=== PATIENT | male | born 1980 | race African-American/Black ===

== ENCOUNTER 2023-06-03 08:54 | Day surgery (SDC) | payer OTHER, SELFPAY ==
[2023-05-20 09:00] VITALS: BMI 30.8
[2023-06-03 09:48] VITALS: BP 125/96; PULSE 62; RESP 14; TEMP 36.9; O2SAT 100
--- NOTE | 2023-06-03 09:59 | WPDANESEPPF ---
Anes - Initial Pre Proc Eval Procedure: Operation Date: 06/03/23 11:00 Proposed Procedures p Diagnostic Colonoscopy - Angel Luis Fox MD Date/Time: 06/03/23 10:00 Surgeon: Angel Luis Fox MD Pre Op Diagnosis: Rectal Bleeding, Hemorrhoids Patient Data Age: 42 Gender: M Height: 1.65 m Weight: 87.9 kg Last Vital Signs Temp 36.9 C 06/03/23 09:48 Pulse 62 06/03/23 09:48 Resp 14 06/03/23 09:48 BP 125/96 H 06/03/23 09:48 Pulse Ox 100 06/03/23 09:48 O2 Del Method Room Air 06/03/23 09:48 Allergies Allergy/AdvReac Type Severity Reaction Status Date / Time No Known Allergies Allergy Verified 06/03/23 09:46 Home Medications Medication Instructions Recorded Confirmed Type valacyclovir 500 mg tablet 500 mg PO TID #30 tabs 11/19/22 06/03/23 Rx hydrocortisone 2.5 % topical cream 1 applic RECTAL QHS PRN 12/11/22 06/03/23 Rx with perineal applicator hemorrhoids #30 grams (Proctosol HC) Patient hx anesthesia problems: none Family hx anesthesia problems: none Results Review: All pre-operative results and documents have been reviewed as part of the pre-operative evaluation. [facility] Past Medical History Medical History (Updated 06/03/23 @ 10:00 by Steve Joyner MD) Overweight Family History Family History Father Patient's father is in good health Mother Family history unknown, Onset Age: 68 Social History Social History Smoking status: Never smoker Second hand tobacco smoke exposure: No Alcohol intake: current Alcohol use details: occassional Substance use: current Substance use type: marijuana Other substance usage details: occassional Lack of Transportation: No Lack of Food: Never True Current Housing: Decline to Answer Concerned About Future Housing: Decline to Answer Difficulty Paying Gas/Electric Bills: Decline to Answer Difficulty Paying for Meds: Decline to Answer Currently Unemployed: Decline to Answer Education: Decline to Answer Difficulty w/ Childcare or Family Care: No Living arrangements: alone Spiritual care concerns: No Anes - Eval Final PreProcedure Day of Procedure 06/03/23 10:00 Patient weight: overweight Heart: regular rate and rhythm Lungs: clear to auscultation Airway: Mallampati scale class II Neurological: alert and oriented Last oral intake: >/= 8 hours ASA classification: II Emergent: no Anesthetic plan: proceed Anesthesia type and monitoring: general GIVS and standard monitoring Results Review: All pre-operative results and documents have been reviewed as part of the pre-operative evaluation. Informed Consent: The patient's anesthetic plan and its attendant risks and benefits were discussed with the patient/family/POA. Questions were solicited and answers provided to the satisfaction of the patient/family/POA.
[2023-06-03] MEDS: LACTATED RINGERS 1,000 ML 150 ML IV CONT (10:03)
--- NOTE | 2023-06-03 10:11 | PM.HPGS ---
History of Present Illness History of Present Illness Consent: Risks, benefits, and alternatives have been discussed and questions answered. Patient agrees to proceed with procedure. Chief complaint: Rectal Bleeding, Hemorrhoids Narrative: Sy Villalpando is a 42 year old male with intermittent rectal bleeding probably from hemorrhoids but never had colonoscopy Review of Systems Constitutional: Constitutional: Denies headache(s) and Denies weakness Eyes: Eyes: Denies blurry vision ENT: Reports Normal hearing present, Denies headache(s) and Denies neck pain Cardiovascular: Cardiovascular: Denies chest pain and Denies dyspnea Respiratory: Respiratory: Denies dyspnea Gastrointestinal: Gastrointestinal: Reports no additional gastrointestinal complaints Genitourinary: Genitourinary: Denies dysuria Musculoskeletal: Musculoskeletal: Denies neck pain Integumentary/Breasts: Skin/Breast: Denies dry skin Neurologic: Reports Normal hearing present, Denies headache(s) and Denies weakness Psychiatric: Psychiatric: Denies anxiety Endocrine: Endocrine: Denies change in body appearance Hematologic/Lymphatic: Hematologic/Lymphatic: Denies easy bleeding Allergic/Immunologic: Allergic/Immunologic: Denies urticaria PMFSH Past Medical History Medical History (Updated 06/03/23 @ 10:00 by Steve Joyner MD) Overweight Family History Family History Father Patient's father is in good health Mother Family history unknown, Onset Age: 68 Social History Social History Smoking status: Never smoker Second hand tobacco smoke exposure: No Alcohol intake: current Alcohol use details: occassional Substance use: current Substance use type: marijuana Other substance usage details: occassional Lack of Transportation: No Lack of Food: Never True Current Housing: Decline to Answer Concerned About Future Housing: Decline to Answer Difficulty Paying Gas/Electric Bills: Decline to Answer Difficulty Paying for Meds: Decline to Answer Currently Unemployed: Decline to Answer Education: Decline to Answer Difficulty w/ Childcare or Family Care: No Living arrangements: alone Spiritual care concerns: No Meds Home Medications and Allergies Home Medications Medication Instructions Recorded Confirmed Type valacyclovir 500 mg tablet 500 mg PO TID #30 tabs 11/19/22 06/03/23 Rx hydrocortisone 2.5 % topical cream 1 applic RECTAL QHS PRN 12/11/22 06/03/23 Rx with perineal applicator hemorrhoids #30 grams (Proctosol HC) Allergies Allergy/AdvReac Type Severity Reaction Status Date / Time No Known Allergies Allergy Verified 06/03/23 09:46 Vital Signs Vital Signs - 24 hr 06/03/23 09:48 Temperature 98.5 F Pulse Rate 62 Respiratory Rate 14 Blood Pressure 125/96 H Pulse Oximetry 100 Oxygen Delivery Room Air Exam Const: General: comfortable and no acute distress HENMT: Face/Nose/Sinus: Normal nares present Eyes: General: appearance normal, both eyes and all related structures Neck: Neck: no JVD Resp: Auscultation: clear to auscultation bilaterally Cardio: Rate: regular rate Rhythm: regular rhythm GI: Inspection: non-distended GI Palp: Yes Soft to palpation Skin: General skin exam: normal color Neuro: General: gait normal Speech: normal speech Extrem: General: normal to inspection Psych: Mental Status: mental status grossly normal Assessment and Plan Assessment and plan (1) Bleeding hemorrhoid: Code(s): K64.9 - Unspecified hemorrhoids Status: Acute Assessment and Plan: colonoscopy
[2023-06-03 10:27] VITALS: BP 102/73; PULSE 73; RESP 16; O2SAT 99
[2023-06-03 10:37] VITALS: BP 100/76; PULSE 67; RESP 20; O2SAT 100
[2023-06-03 10:47] VITALS: BP 105/80; PULSE 67; RESP 20; O2SAT 99
--- NOTE | 2023-06-03 11:02 | WPDANESPN ---
Anes - Prog Note Post-Op Date/Time: 06/03/23 11:02 Cardiovascular status: normal Respiratory status: normal Airway patency: baseline Mental status: baseline Post-Op hydration status: normal Vital Signs: Last Vital Signs Temp 36.9 C 06/03/23 09:48 Pulse 67 06/03/23 10:47 Resp 20 06/03/23 10:47 BP 105/80 06/03/23 10:47 Pulse Ox 99 06/03/23 10:47 O2 Del Method Room Air 06/03/23 10:47 Pain Score (VAS): 0/10 I/O: Intake & Output 06/02/23 06/03/23 06/03/23 23:59 07:59 15:59 Intake Total 500 Balance 500 Patient Feedback: Patient satisfied with anesthetic care.
== END 2023-06-03 11:03 | disposition home or self-care (01) ==
PROVIDERS: Visit Provider Internal Medicine Gastroenterology
PROC: 0DJD8ZZ Inspection of Lower Intestinal Tract, Via Natural or Artificial Opening Endoscopic (ICD-10-PCS; CPT 45378; principal; 2023-06-03 11:00)
DX: K92.1 Melena (principal); K64.8 Other hemorrhoids
CPT/HCPCS: 45378

== ENCOUNTER 2024-11-23 14:11 | Outpatient (CLI) | payer OTHER, SELFPAY ==
[2024-11-23 16:16] LABS: Basophils Absolute Auto 0.1 K/mm3 (0.0-0.1); Eosinophils Absolute Auto 0.3 K/mm3 (0-0.3); Eosinophils Percent Auto 3.8 % (0-4.4); Hematocrit 41.4 % (42.0-52.0); Hemoglobin 13.7 g/dL (14.0-18.0); Immature Granulocyte Percent A 2.9 % (0-0.5); Lymphocytes Absolute Auto 2.16 K/mm3 (0.9-3.2); Lymphocytes Percent Auto 31.7 % (18.3-44.2); Mean Corpuscular HGB Conc 33.1 g/dl (32-36); Mean Corpuscular Hemoglobin 29.4 pg (26-34); Mean Corpuscular Volume 88.8 fl (80-100); Mean Platelet Volume 9.7 fl (7.4-10.4); Monocytes Absolute Auto 0.9 K/mm3 (0.1-0.6); Monocytes Percent Auto 12.8 % (2.6-8.5); Neutrophils Absolute Auto 3.3 K/mm3 (1.3-6.7); Neutrophils Percent Auto 47.8 % (45.5-73.1); Platelet Count Result 266 k/mm3 (150-375); Red Blood Count 4.66 M/mm3 (4.6-6.20); White Blood Count 6.8 K/mm3 (4.5-10.0)
[2024-11-23 16:32] LABS: Alanine Aminotransferase 34 U/L (6-50); Albumin Level 4.2 g/dL (3.5-5.1); Alkaline Phosphatase 57 U/L (38-126); Anion Gap 12 mmol/L (4-12); Aspartate Amino Transferase 36 U/L (17-59); Bilirubin,Total 0.4 mg/dL (0.2-1.3); Blood Urea Nitrogen 16 mg/dL (9-20); Calcium 8.8 mg/dL (8.4-10.2); Carbon Dioxide 26 mmol/L (22-30); Chloride 98 mmol/L (98-107); Estimated Glomerular Filt Rate > 60; Glucose 82 mg/dL (65-110); Potassium 3.7 mmol/L (3.4-5.0); Sodium 136 mmol/L (137-145)
--- OUTSIDE RECORDS SUMMARY | 2024-11-26 13:56 | XMS_ITS | Clinical Summary ---
Author Organization [facility] Address [address] [place] [id number] Care Team Providers Care R Developer Name Role Phone Best Reyes MD Primary Care Provider [phone] Allergies No known active allergies Medications No known medications Active Problems No known active problems Surgical History Surgery Date Site/Laterality Comments FLUORO GUIDED INJECTION HIP RIGHT 06/02/2020 Right Family History Medical History Relation Name Comments No Known Problems Father No Known Problems Mother Relation Name Status Comments Father Mother Social History Tobacco Use Types Packs/Day Years Used Date Smoking Tobacco: Never Alcohol Use Standard Drinks/Week Comments Yes 0 (1 standard drink = 0.6 oz pur e alcohol) Sex and Gender Information Value Date Recorded Sex Assigned at Not on file Legal Sex Male 1:18 PM CDT Gender Identity Not on file Sexual Orientation Not on file Obstetrics History Last Filed Vital Signs Vital Sign Reading Time Taken Comments Blood Pressure 132/78 06/02/2020 1:50 PM CDT Pulse 79 06/02/2020 1:50 PM CDT Temperature - - Respiratory Rate 18 06/02/2020 1:50 PM CDT Oxygen Saturation 99% 06/02/2020 1:50 PM CDT Inhaled Oxygen Concentration - - Weight 88.5 kg (195 lb) 05/16/2020 4:38 PM CDT Height 165.1 cm (5' 5 ) 05/16/2020 4:38 PM CDT Body Mass Index 32.45 05/16/2020 4:38 PM CDT Plan of Treatment Not on file Insurance [facility] [employer] Care Teams R Developer Relationship Specialty Start Date End Date Best Reyes MD [address] [place] [address] PCP - General Internal Medicine 05/12/20
--- OUTSIDE RECORDS SUMMARY | 2024-11-26 13:56 | XMS_ITS | Referral Summary ---
Author Organization [facility] Address [address] [place] [id number] Care Team Providers Care Acoustical Installer Name Role Phone Best Reyes MD Primary Care Provider [phone] Allergies No known active allergies Medications No known medications Active Problems No known active problems Social History Tobacco Use Types Packs/Day Years Used Date Smoking Tobacco: Never Alcohol Use Standard Drinks/Week Comments Yes 0 (1 standard drink = 0.6 oz pur e alcohol) Sex and Gender Information Value Date Recorded Sex Assigned at Not on file Legal Sex Male 1:18 PM CDT Gender Identity Not on file Sexual Orientation Not on file Last Filed Vital Signs Vital Sign Reading [...] Plan of Treatment Not on file Insurance [facility] CHOICE PLUS [facility] HMO/PPO Address: [facility] [address] [place] [address] Care Teams Acoustical Installer Relationship Specialty Start Date End Date Best Reyes MD [address] [place] [address] PCP - General Internal Medicine 05/12/20
== END 2024-11-23 14:12 | disposition home or self-care (01) ==
LOC: ANHGOSHLAB 14:12
PROVIDERS: PCP Internal Medicine; Visit Provider Internal Medicine
DX: E83.52 Hypercalcemia (principal); Z13.0 Encounter for screening for diseases of the blood and blood-forming organs and certain disorders involving the immune mechanism
CPT/HCPCS: 36415; 80053; 85025